=== PATIENT | male | born 1960 | race Caucasian/White ===

== ENCOUNTER 2018-02-26 14:13 | Observation (INO) | payer OTHER ==
[2018-02-26 15:24] LABS: BASO % 0.5 % (0.0-2.0); EOS # 0.1 K/uL (0.0-0.7); EOS % 1.7 % (0.0-4.0); HEMOGLOBIN 12.5 g/dL (12.0-18.0); LYMPH # 1.3 K/uL (1.0-4.3); LYMPH % 28.3 % (20.0-40.0); MEAN CORPUSCULAR HEMOGLOBIN 30.7 pg (27.0-31.0); MEAN CORPUSCULAR HGB CONC 34.1 g/dL (33.0-37.0); MEAN PLATELET VOLUME 7.6 fL (7.2-11.7); MONO # 0.5 K/uL (0.0-0.8); MONO % 9.8 % (0.0-10.0); NEUT # 2.8 K/uL (1.8-7.0); NEUT % 59.7 % (50.0-75.0); RBC 4.06 Mil/uL (4.40-5.90); RED CELL DISTRIBUTION WIDTH 13.1 % (11.5-14.5); WHITE BLOOD COUNT 4.6 K/uL (4.8-10.8)
[2018-02-26 15:32] LABS: INR 1.1; PROTHROMBIN TIME 12.4 SECONDS (9.7-12.2)
[2018-02-26 15:35] LABS: ALB/GLOB RATIO 1.4 (1.0-2.1); ALT/SGPT 22 U/L (21-72); AST/SGOT 24 U/L (17-59); BLOOD UREA NITROGEN 13 mg/dL (9-20); CALCIUM 9.2 mg/dl (8.6-10.4); GFR AFRICAN-AMERICAN > 60; GFR NON-AFRICAN AMERICAN > 60
--- NOTE | 2018-02-26 15:41 | RAD ---
Chest x-ray single frontal view History: Chest pain. Comparison: None available. Findings: No focal infiltrate or effusion. Mild right hilar prominence. Heart size within normal limits. Impression: No focal infiltrate or effusion.
[2018-02-26 15:47] LABS: CK-MB 1.98 ng/mL (0.0-3.38)
--- NOTE | 2018-02-26 17:31 | C.PDOC ---
History Of Present Illness 57-year-old male, presents to the emergency department with complaints of chest pain. Patient was seen by PMD, Dr Francesca Vasquez, who referred pt to ED for further evaluation. Denies any nausea/vomiting, back pain, dizziness, or any other associated symptoms. No other complaints at this time. Patient sts he took ASA in her PMD office. Chief Complaint (Nursing): Chest Pain History Per: Patient History/Exam Limitations: no limitations Onset/Duration Of Symptoms: Days Current Symptoms Are (Timing): Still Present Severity: Moderate Past Medical History Reviewed: Historical Data, Nursing Documentation, Vital Signs Vital Signs: Last Vital Signs Temp 98.1 F 02/26/18 18:26 Pulse 69 02/26/18 18:26 Resp 18 02/26/18 18:26 BP 146/87 02/26/18 18:26 Pulse Ox 98 02/26/18 18:40 Family History: States: No Known Family Hx - Social History Hx Alcohol Use: No Hx Substance Use: No - Immunization History Hx Tetanus Toxoid Vaccination: No Hx Influenza Vaccination: No Hx Pneumococcal Vaccination: No Review Of Systems Constitutional: Negative for: Fever, Chills Cardiovascular: Positive for: Chest Pain. Negative for: Palpitations Respiratory: Negative for: Cough, Shortness of Breath Musculoskeletal: Negative for: Neck Pain, Arm Pain, Back Pain Neurological: Negative for: Weakness, Numbness, Headache, Dizziness Physical Exam - Physical Exam Appears: Non-toxic, No Acute Distress Skin: Normal Color, Warm, Dry, No Rash Head: Atraumatic, Normacephalic Eye(s): bilateral: Normal Inspection Nose: Normal Oral Mucosa: Moist Lips: Normal Appearing Neck: Normal ROM Chest: Symmetrical Cardiovascular: Rhythm Regular, No Murmur Respiratory: Normal Breath Sounds, No Accessory Muscle Use Gastrointestinal/Abdominal: Soft, No Tenderness Extremity: Normal ROM, No Deformity, No Swelling Neurological/Psych: Oriented x3, Normal Speech ED Course And Treatment - Laboratory Results Result Diagrams: 02/26/18 15:21 02/26/18 15:21 ECG: Interpreted By Me ECG Rhythm: Sinus Rhythm ECG Interpretation: No Acute Changes O2 Sat by Pulse Oximetry: 98 (RA) Pulse Ox Interpretation: Normal - Radiology CXR: Interpreted by Me CXR Interpretation: Yes: No Acute Disease Progress Note: Case was d/c who accepted patient to his service for tele obs. Disposition - Disposition Disposition: HOSPITALIZED Disposition Time: 17:33 Condition: FAIR - Clinical Impression Clinical Impression: Chest pain - Scribe Statement The provider has reviewed the documentation as recorded by the Scribe (Vero Donovan) All medical record entries made by the Scribe were at my direction and personally dictated by me. I have reviewed the chart and agree that the record accurately reflects my personal performance of the history, physical exam, medical decision making, and the department course for this patient. I have also personally directed, reviewed, and agree with the discharge instructions and disposition. Decision To Admit - Pt Status Changed To: Hospital Disposition Of: Observation - . Bed Request Type: Telemetry Admitting Physician: Kevon Ramos Patient Diagnosis: Chest pain
[2018-02-26 19:03] VITALS: O2SAT 99
[2018-02-26 20:25] LABS: CK-MB 1.73 ng/mL (0.0-3.38); HDL CHOLESTEROL 37 mg/dL (30-70); LDL CHOLESTEROL 88 mg/dL (0-129)
[2018-02-27 01:23] LABS: CK-MB 1.72 ng/mL (0.0-3.38)
[2018-02-27] MEDS ORDERED: Enoxaparin 40 mg Syringe SC SCH (10:00)
[2018-02-27 16:56] VITALS: BP 130/72; PULSE 77; RESP 20; TEMP 98
--- NOTE | 2018-02-27 17:16 | CARD ---
APPROVED REPORT EKG Measurement Heart [id number] CT [id number] <Conclusion> Normal sinus rhythm Normal ECG
--- NOTE | 2018-02-27 17:35 | CARD ---
APPROVED REPORT EXAM: Two-dimensional and M-mode echocardiogram with Doppler and color Doppler. Other Information Quality : GoodRhythm : INDICATION Chest Pain 2D DIMENSIONS IVSd0.8 (0.7-1.1cm)LVDd3.7 (3.9-5.9cm) PWd0.7 (0.7-1.1cm)LVDs2.5 (2.5-4.0cm) FS (%) 31.0 %LVEF (%)59.6 (>50%) M-Mode DIMENSIONS Left Atrium (MM)4.14 (2.5-4.0cm)IVSd0.61 (0.7-1.1cm) Aortic Root3.57 (2.2-3.7cm)LVDd4.50 (4.0-5.6cm) Aortic Cusp Exc.2.26 (1.5-2.0cm)PWd0.65 (0.7-1.1cm) FS (%) 33 %LVDs3.00 (2.0-3.8cm) LVEF (%)62 (>50%) Mitral Valve MV E Mncpbdfd49.7cm/sMV A Txtojlpm09.8cm/sE/A ratio0.9 TDI E/Lateral E'0.0E/Medial E'0.0 Tricuspid Valve TR Peak Zbhzyfov159dd/sTR Peak Gr.[id number] LEFT VENTRICLE The left ventricle is normal size. There is normal left ventricular wall thickness. The left ventricular function is normal. The left ventricular ejection fraction is within the normal range. About 65% No regional wall motion abnormalities noted. The left ventricular diastolic function is normal. No left ventricle thrombus noted on this study. There is no ventricular septal defect visualized. There is no left ventricular aneurysm. There is no mass noted in the left ventricle. RIGHT VENTRICLE The right ventricle is normal size. There is normal right ventricular wall thickness. The right ventricular systolic function is normal. ATRIA The left atrium size is normal. The right atrium size is normal. The interatrial septum is intact with no evidence for an atrial septal defect. AORTIC VALVE The aortic valve is normal in structure and function. Trace aortic regurgitation is present. There is no aortic valvular stenosis. There is no aortic valvular vegetation. MITRAL VALVE The mitral valve is normal in structure and function. There is no evidence of mitral valve prolapse. There is no mitral valve stenosis. There is no mitral valve regurgitation noted. TRICUSPID VALVE The tricuspid valve is normal in structure and function. There is no tricuspid valve regurgitation noted. There is no tricuspid valve prolapse or vegetation. There is no tricuspid valve stenosis. PULMONIC VALVE The pulmonary valve is normal in structure and function. There is no pulmonic valvular regurgitation. There is no pulmonic valvular stenosis. GREAT VESSELS The aortic root is normal in size. The ascending aorta is normal in size. The pulmonary artery is normal. The IVC is normal in size and collapses >50% with inspiration. PERICARDIAL EFFUSION The pericardium appears normal. There is no pleural effusion. <Conclusion> Trace aortic regurgitation is present. The left ventricular function is normal.
--- NOTE | 2018-02-27 23:02 | CP.PCM.HP ---
History of Present Illness - History of Present Illness History of Present Illness: CC: chest pain History Of Present Illness 57-year-old male, presents to the emergency department with complaints of chest pain. Patient was seen by PMD, Dr Francesca Vasquez, who referred pt to ED for further evaluation. Denies any nausea/vomiting, back pain, dizziness, or any other associated symptoms. No other complaints at this time. Patient sts he took ASA in her PMD office. Present on Admission - Present on Admission Any Indicators Present on Admission: Yes Review of Systems - Constitutional Constitutional: Fatigue, Lethargy, Malaise, Weakness - EENT Nose/Mouth/Throat: absent: As Per HPI, Epistaxis, Nasal Congestion, Nasal Discharge, Nasal Obstruction, Nasal Trauma, Nose Pain, Post Nasal Drip, Sinus Pain, Sinus Pressure, Bleeding Gums, Change in Voice, Dental Pain, Dry Mouth, Dysphagia, Halitosis, Hoarsness, Lip Swelling, Mouth Lesions, Mouth Pain, Odynophagia, Sore Throat, Throat Swelling, Tongue Swelling, Facial Pain, Neck Pain, Neck Mass, Other - Cardiovascular Cardiovascular: Chest Pain, Dyspnea Past Patient History - Past Social History Smoking Status: Never Smoked - PSYCHIATRIC Hx Substance Use: No - SURGICAL HISTORY Hx Surgeries: No - ANESTHESIA Hx Anesthesia: No Hx Anesthesia Reactions: No Meds Allergies/Adverse Reactions: Allergies Allergy/AdvReac Type Severity Reaction Status Date / Time No Known Allergies Allergy Unverified 02/26/18 14:15 Physical Exam - Constitutional Appears: No Acute Distress - Head Exam Head Exam: ATRAUMATIC, NORMAL INSPECTION, NORMOCEPHALIC - Eye Exam Eye Exam: EOMI, Normal appearance, PERRL Pupil Exam: NORMAL ACCOMODATION, PERRL - ENT Exam ENT Exam: Mucous Membranes Moist - Respiratory Exam Respiratory Exam: Clear to Auscultation Bilateral, NORMAL BREATHING PATTERN - Cardiovascular Exam Cardiovascular Exam: REGULAR RHYTHM Results - Vital Signs Recent Vital Signs: Last Vital Signs Temp 98.0 F 02/27/18 16:55 Pulse 77 02/27/18 16:55 Resp 20 02/27/18 16:55 BP 130/72 02/27/18 16:55 Pulse Ox 99 02/27/18 16:55 - Labs Result Diagrams: 02/26/18 15:21 02/26/18 15:21 Labs: Laboratory Results - last 24 hr 02/27/18 02/27/18 00:55 18:42 D-Dimer, Quantitative < 200 Total Creatine Kinase 101 CK-MB (Mass) 1.72 Troponin I < 0.0120 Assessment & Plan (1) Chest pain Status: Acute
--- NOTE | 2018-02-27 23:03 | CP.PCM.DIS ---
Provider - Provider Date of Admission: 02/26/18 17:32 Attending physician: Kevon Ramos MD Time Spent in preparation of Discharge (in minutes): 52 Diagnosis - Discharge Diagnosis (1) Chest pain Status: Acute Hospital Course - Lab Results Lab Results: Most Recent Lab Values WBC 4.6 K/uL (4.8-10.8) L 02/26/18 15:21 RBC 4.06 Mil/uL (4.40-5.90) L 02/26/18 15:21 Hgb 12.5 g/dL (12.0-18.0) 02/26/18 15:21 Hct 36.5 % (35.0-51.0) 02/26/18 15:21 MCV 90.0 fL (80.0-94.0) 02/26/18 15:21 MCH 30.7 pg (27.0-31.0) 02/26/18 15:21 MCHC 34.1 g/dL (33.0-37.0) 02/26/18 15:21 RDW 13.1 % (11.5-14.5) 02/26/18 15:21 Plt Count 227 K/uL (130-400) 02/26/18 15:21 MPV 7.6 fL (7.2-11.7) 02/26/18 15:21 Neut % (Auto) 59.7 % (50.0-75.0) 02/26/18 15:21 Lymph % (Auto) 28.3 % (20.0-40.0) 02/26/18 15:21 [place] % (Auto) 9.8 % (0.0-10.0) 02/26/18 15:21 Eos % (Auto) 1.7 % (0.0-4.0) 02/26/18 15:21 Baso % (Auto) 0.5 % (0.0-2.0) 02/26/18 15:21 Neut # (Auto) 2.8 K/uL (1.8-7.0) 02/26/18 15:21 Lymph # (Auto) 1.3 K/uL (1.0-4.3) 02/26/18 15:21 [place] # (Auto) 0.5 K/uL (0.0-0.8) 02/26/18 15:21 Eos # (Auto) 0.1 K/uL (0.0-0.7) 02/26/18 15:21 Baso # (Auto) 0.0 K/uL (0.0-0.2) 02/26/18 15:21 PT 12.4 SECONDS (9.7-12.2) H 02/26/18 15:21 INR 1.1 02/26/18 15:21 APTT 32 SECONDS (21-34) 02/26/18 15:21 D-Dimer, Quantitative < 200 ng/mlDDU (0-243) 02/27/18 18:42 Sodium 139 mmol/L (132-148) 02/26/18 15:21 Potassium 4.2 mmol/L (3.6-5.2) 02/26/18 15:21 Chloride 102 mmol/L (98-107) 02/26/18 15:21 Carbon Dioxide 26 mmol/L (22-30) 02/26/18 15:21 Anion Gap 15 (10-20) 02/26/18 15:21 BUN 13 mg/dL (9-20) 02/26/18 15:21 Creatinine 0.8 mg/dL (0.8-1.5) 02/26/18 15:21 Est GFR ( Amer) > 60 02/26/18 15:21 Est GFR (Non-Af Amer) > 60 02/26/18 15:21 Random Glucose 110 mg/dL (75-110) 02/26/18 15:21 Calcium 9.2 mg/dl (8.6-10.4) 02/26/18 15:21 Total Bilirubin 0.6 mg/dL (0.2-1.3) 02/26/18 15:21 AST 24 U/L (17-59) 02/26/18 15:21 ALT 22 U/L (21-72) 02/26/18 15:21 Alkaline Phosphatase 71 U/L (38-126) 02/26/18 15:21 Total Creatine Kinase 101 U/L (55-170) 02/27/18 00:55 CK-MB (Mass) 1.72 ng/mL (0.0-3.38) 02/27/18 00:55 Troponin I < 0.0120 ng/mL (0.00-0.120) 02/27/18 00:55 Total Protein 7.0 g/dL (6.3-8.3) 02/26/18 15:21 Albumin 4.0 g/dL (3.5-5.0) 02/26/18 15:21 Globulin 3.0 gm/dL (2.2-3.9) 02/26/18 15:21 Albumin/Globulin Ratio 1.4 (1.0-2.1) 02/26/18 15:21 Triglycerides 192 mg/dL (0-149) H 02/26/18 19:58 Cholesterol 155 mg/dL (0-199) 02/26/18 19:58 LDL Cholesterol Direct 88 mg/dL (0-129) 02/26/18 19:58 HDL Cholesterol 37 mg/dL (30-70) 02/26/18 19:58 Discharge Exam - Head Exam Head Exam: ATRAUMATIC, NORMAL INSPECTION, NORMOCEPHALIC Discharge Plan - Follow Up Plan Condition: FAIR Disposition: HOME/ ROUTINE Instructions: Heart Healthy Diet, Chest Pain (DC) Referrals: Ashok Gallagher MD [Staff Provider] - Kevon Ramos MD [Staff Provider] -
--- NOTE | 2018-02-28 05:02 | CON ---
DATE: 02/27/2018 CARDIOLOGY CONSULTATION REASON FOR CONSULTATION: Chest pain. HISTORY OF PRESENT ILLNESS: The patient is a 57 years old male who presented to the emergency room because of chest pain and was referred by his primary physician, , to the emergency room for this reason. The patient denied any prior cardiac history and at the time of seeing the patient, he denies any chest pain. The patient is unable to describe the character of chest pain. He denies any nausea, vomiting, dizziness, or back pain. SOCIAL HISTORY: Nonsmoker. Occasional drinker. MEDICATIONS: Crestor 20 mg once a day, aspirin 81 mg once a day, Lovenox 40 mg subcutaneous once a day. PHYSICAL EXAMINATION: GENERAL: The patient is a middle-aged male who does not appear to be in acute distress. VITAL SIGNS: Blood pressure 130/72, heart rate 77, temperature 98, respirations 20. HEENT: Normocephalic. CHEST: Clear. HEART: S1 and S2 are regular. ABDOMEN: Soft. EXTREMITIES: No edema. LABORATORY DATA: SMA-7 is entirely within normal limits. Three sets of troponins are negative. Triglycerides elevated at . Rest of the lipid profile is within normal limit. Hemoglobin and hematocrit 12.5 and 36.5, white count 4.6, platelet count 127,000. EKG revealed normal sinus rhythm at the rate of 79. Echocardiogram study, trace aortic regurgitation, however, is a normal study. ASSESSMENT: 1. Chest pain. Myocardial infarction is ruled out. 2. Hypertriglyceridemia. RECOMMENDATIONS: Continue current aspirin, Crestor, and subcutaneous Lovenox. Obtain serial D-dimer. Ashok Gallagher MD
== END 2018-02-27 19:20 | disposition home or self-care (01) ==
LOC: C.ER 14:13 → C.9E 17:32 → C.6T 18:20
PROVIDERS: ADMIT Internal Medicine; ATTEND Internal Medicine
DX: R07.9 Chest pain, unspecified (principal); E78.1 Pure hyperglyceridemia
CPT/HCPCS: 36415; 71045; 80053; 80061; 82550; 82553; 84484; 85025; 85378; 85610; 85730; 93005; 93306; 96372; 99285; G0378; J1650